=== PATIENT | female | born 1970 | race Caucasian/White ===

== ENCOUNTER 2023-03-13 09:45 | Emergency (ER) | payer SELFPAY ==
[2023-03-13 09:46] VITALS: BP 144/74; PULSE 58; RESP 20; TEMP 36.7; O2SAT 100; BMI 42.4
--- NOTE | 2023-03-13 10:03 | CT_ITS ---
STUDY: CTA CHEST REASON FOR EXAM: Female, 52 years old. Left upper chest pain, dyspnea RADIATION DOSAGE (If Supplied By Facility): CTDIvol = ( 15.03 ) mGy, DLP = ( 471.52 ) mGycm TECHNIQUE: The examination was performed with the intravenous administration of IV 100mL Isovue-370. Post-processing of the angiographic images was performed, with multiplanar reformation and 3D reconstruction. Individualized dose optimization techniques were used for this CT. COMPARISON: None. FINDINGS: Normal enhancement of the main pulmonary artery and right and left pulmonary arteries. Normal enhancement of the bilateral peripheral pulmonary arteries. There is no demonstrated pulmonary embolism. Normal thoracic aorta and visualized great vessels. There is no demonstrated aortic dissection. No coronary artery calcification is seen. Normal mediastinum. Normal hilar regions. Normal visualized trachea and bronchi. The lungs are well expanded. Normal pulmonary parenchyma. Normal pleura. Normal chest wall structures. Normal osseous structures. Normal visualized upper abdomen. CT/CTA Chest W/WO Contrast IMPRESSION: Normal CTA chest examination, without a demonstrated pulmonary embolism or arterial dissection. Electronically Signed: Demetri Velasco MD at 11:26 EDT ,
--- NOTE | 2023-03-13 10:03 | EKG12_ITS ---
Test Reason : CP Blood Pressure : / mmHG Vent. Rate : 057 BPM Atrial Rate : 057 BPM P-R Int : 160 ms QRS Dur : 084 ms QT Int : 440 ms P-R-T Axes : 053 013 050 degrees QTc Int : 428 ms Sinus bradycardia Low voltage QRS Nonspecific T wave abnormality Abnormal ECG Confirmed by RANDY GIPSON, CHETAN ([id number]), copy editor MADELINE HUNT ([id number]) on 03/17/2023 11:42:45 AM Referred By: Martinez Schafer Confirmed By:CHETAN PADILLA MD
--- NOTE | 2023-03-13 10:05 | ED.VIS.CHEST ---
HPI History of Present Illness Chief Complaint: Chest Pain Informant: patient Narrative Narrative: Patient's primary complaint is actually pain over by her left shoulder. She states this woke her up at about 2:30 in the morning. It then spread up over the top of her shoulder toward the base of her neck and down in the left upper chest. If she sits still its not that bad. But if she moves her shoulder it is painful. She has a little discomfort turning her neck left and right. No numbness tingling. She states the pain was bad enough that she felt short of breath but is not short of breath now. She denies nausea or vomiting. She cannot think of anything that she did to cause or aggravate this. She has not had any recent infections. She has had no fevers or chills. Her father had a heart attack somewhere in his 50s but were not sure the exact age. But the patient has no diabetes high blood pressure cholesterol or smoking history. She has never had heart issues. She has had no travel surgery immobilization personal or known history of DVT or PE in her the family. She states her dad had a clot but that was actually a heart attack. He had CPR and then was brought back. She has no leg pain or swelling. [facility] Medical History Anxiety Depression Home Medications buspirone 10 mg tablet 10 mg PO TID 03/13/23 [History Last Taken Unknown] citalopram 40 mg tablet 40 mg PO DAILY 03/13/23 [History Last Taken Unknown] gabapentin 300 mg capsule 300 mg PO BID 03/13/23 [History Last Taken Unknown] tramadol 50 mg tablet 50 mg PO Q6H PRN pain 3 days #12 tabs 03/13/23 [Rx Last Taken Unknown] Allergy/AdvReac Type Severity Reaction Status Date / Time acetaminophen [From Vicodin] Allergy Nausea Verified 03/13/23 09:46 codeine Allergy Nausea Verified 03/13/23 09:46 hydrocodone [From Vicodin] Allergy Nausea Verified 03/13/23 09:46 Surgical History Hx of cholecystectomy Hx of foot surgery Hx of hand surgery Hx of hysterectomy Social History Smoking Status: Never smoker ROS ROS ED Constitutional Constitutional ED: Denies chills, fever(s), subjective or sweats Eyes Eyes: Denies change in vision ENT ENT ED: Reports other Details: She does have some soreness toward the base of the neck on the left but it really radiates from around the shoulder area. ; Denies rhinorrhea or sore throat Cardiovascular Cardiovascular: Reports as per HPI Respiratory/Chest Respiratory/Chest: Denies cough Gastrointestinal Gastrointestinal: Denies diarrhea, nausea or vomiting Genitourinary Genitourinary ED: Denies hematuria Musculoskeletal Musculoskeletal: Reports arthralgias, neck pain and other Details: Soreness seems to center more around motion of the left shoulder. She states sometimes moving the elbow and even the forearm hurts also but the shoulder area is worse. She actually points more to the lateral deltoid as the origin of her pain rather than the actual glenohumeral joint. ; Denies myalgias Integumentary Denies abscess or rash Neurologic Neurologic: Denies headache(s), paresthesias or weakness Hematologic/Lymphatic Hematologic/Lymphatic: Denies easy bleeding or easy bruising Allergic/Immunologic Allergic/Immunologic ED: Denies urticaria EXAM Physical Exam Narrative Exam Narrative: Patient is awake alert looks comfortable in bed. Nontoxic. Carries on normal conversation HEENT shows no trauma. Mucous membranes are moist. Eyes show no icterus Neck there is minimal tenderness in the musculature at the left base. But no meningismus. No pain with axial loading. Lungs are completely clear bilaterally. No pain with a deep breath. Saturations are normal at 100% on room air Heart is slightly bradycardic but she states she has a long history of a slow heart rate and that is normal for her. I do not hear a murmur. She has excellent pulses in all 4 extremities. Abdomen is obese but no tenderness. No rebound guarding or mass. shows no suprapubic or CVA tenderness Extremities show no edema. No erythema. She has tenderness mostly over the deltoid and supraspinatus muscle. There is some pain with active motion but not so much with passive. This seems more muscular and does not appear to be in the joint so much. She states there is a little bit of tenderness when I press down and bicep tricep area also. I see no skin changes. She has a little bit of tenderness in the left upper chest wall where she has pain also. Neurologically she is awake alert and appropriate. Const Vital Signs: 03/13/23 09:46 03/13/23 09:50 03/13/23 10:12 Temperature 98.0 F Temperature Source Oral Pulse Rate 58 L 51 L Respiratory Rate 20 H Respiratory Effort Normal Respiratory Pattern Normal Blood Pressure 144/74 H 156/72 H Blood Pressure Mean 97 100 Pulse Ox 100 Oxygen Delivery Method Room Air MDM MDM MDM Narrative Medical decision making narrative: My independent interpretation the patient's CTA shows no acute process. Final reading is normal CTA chest examination without a demonstrated pulmonary embolism or arterial dissection. Patient CBC is normal including white count. Electrolytes are normal other than minimal elevation in the creatinine at 1.07. She was given some fluids here. Troponin is unmeasurable after approximately 7 and half hours of symptoms. Patient's recheck. Reexamine the area. There is no erythema rash subcutaneous air. There is no indication of infection or necrotizing fasciitis. She has pain really in the musculature more than with joint pain. I do not think this requires joint aspiration. We will get her something for pain. Patient may have strained this or slept wrong. Although she has allergies to codeine and hydrocodone, she is taken tramadol without difficulty so we will write for that. We discussed reasons to return that would include any swelling, redness, fevers, trouble breathing numbness or other concerns. I did access and review the online prescribing report. Lab Data Labs: Laboratory Results - last 24 hr 03/13/23 03/13/23 09:50 09:50 WBC 6.6 RBC 4.45 Hgb 13.5 Hct 41.3 MCV 92.8 MCH 30.3 MCHC 32.7 RDW Std Deviation 43.0 RDW Coeff of Naty 12.7 Plt Count 323 MPV 9.6 Immature Gran % (Auto) 0.300 Neut % (Auto) 62.6 Lymph % (Auto) 29.7 [place] % (Auto) 5.1 Eos % (Auto) 1.7 Baso % (Auto) 0.6 Absolute Neuts (auto) 4.2 Absolute Lymphs (auto) 1.97 Nucleated RBC % 0 Sodium 136 Potassium 3.8 Chloride 103 Carbon Dioxide 29.0 Anion Gap 4 L BUN 14 Creatinine 1.07 H Estim Creat Clear Calc 48.09 Est GFR (MDRD) Af Amer 69 Est GFR (MDRD) Non-Af 57 L BUN/Creatinine Ratio 13.1 Glucose 96 Calcium 9.7 Troponin I High Sens < 3 L Radiography Diagnostic Testing: Clinical Impression(s) from Imaging Studies Chest CTA 03/13/23 10:03 IMPRESSION: Normal CTA chest examination, without a demonstrated pulmonary embolism or arterial dissection. Electronically Signed: Demetri Velasco MD at 11:26 EDT , Discharge Plan Triage Chief Complaint: Chest Pain ED Provider: Martinez Schafer Dx/Rx/DC Orders Clinical Impression: Arm pain, left Instructions: ED Chest Pain, Uncertain Cause Prescriptions: New tramadol 50 mg tablet 50 mg PO Q6H PRN (Reason: pain) 3 Days Qty: 12 0RF No Action citalopram 40 mg tablet 40 mg PO DAILY Label Comments: TAKE 1 TABLET BY MOUTH ONCE DAILY buspirone 10 mg tablet 10 mg PO TID Label Comments: TAKE 1 TABLET BY MOUTH THREE TIMES DAILY gabapentin 300 mg capsule 300 mg PO BID Label Comments: TAKE 1 CAPSULE BY MOUTH TWICE DAILY Primary Care Provider: Juancho Akins Referrals: Juancho Akins MD [Primary Care Provider] - 1-2 Days if not improving Disposition Disposition: Home, Self Care
[2023-03-13 10:11] LABS: Absolute Lymphocyte Count 1.97 X10^3/uL (0.83-4.51); Absolute Neutrophil Count 4.2 X10^3/uL (2.0-7.7); Basophil# 0.04 X10^3/uL; Basophil% 0.6 % (0-1); Eosinophil# 0.11 X10^3/uL; Eosinophils% 1.7 % (0-5); Hematocrit 41.3 % (37-47); Hemoglobin 13.5 g/dL (12.0-15.0); Lymphocyte # 1.97 X10^3/ul (0.83-4.51); Lymphocyte % 29.7 % (19-41); Mean Corp Hgb Conc 32.7 g/dL (32-36); Mean Corpuscular Hgb 30.3 pg (27.0-32.0); Mean Corpuscular Volume 92.8 fL (81-99); Mean Platelet Vol. 9.6 fl (6.2-12.0); Monocyte# 0.34 X10^3/uL; Monocyte% 5.1 % (0-10); NRBC Flagged by Analyzer 0 % (0-5); Neutrophil # 4.16 X10^3/uL (2.7-7.7); Neutrophil % 62.6 % (47-70); Platelet Count 323 K/mm3 (150-450); RBC Distribution Width CV 12.7 % (11.6-14.6); Red Blood Count 4.45 M/mm3 (4.2-5.4); White Blood Count 6.6 K/mm3 (4.4-11.0)
[2023-03-13 10:12] VITALS: BP 156/72; PULSE 51
[2023-03-13 10:30] LABS: Anion Gap 4 (5-15); BUN 14 mg/dL (7-18); BUN/Creat Ratio 13.1 RATIO (10-20); Calcium,Total 9.7 mg/dL (8.5-10.1); Chloride 103 mmol/L (98-107); Creatinine, Serum 1.07 mg/dL (0.55-1.02); EST Glomerular Filtration Rate 57 mL/min (>60); Est Glom Filt Rate - Afr Amer 69 mL/min (>60); Estimated Creatinine Clearance 48.09 ml/min; Glucose 96 mg/dL (74-106); Potassium 3.8 mmol/L (3.5-5.1); Sodium Level 136 mmol/L (136-145); Troponin-I HS < 3 pg/mL (3.0-54.0)
[2023-03-13] MEDS: traMADol 50 MG Tablet PO (12:13)
== END 2023-03-13 12:17 | disposition home or self-care (01) ==
PROVIDERS: Emergency Provider Emergency Medicine; PCP Family Medicine; Referring Provider Emergency Medicine; Visit Provider Emergency Medicine
DX: M79.602 Pain in left arm (principal); F41.9 Anxiety disorder, unspecified; F32.A Depression, unspecified; Z79.899 Other long term (current) drug therapy; Z90.49 Acquired absence of other specified parts of digestive tract; Z90.710 Acquired absence of both cervix and uterus
CPT/HCPCS: 71275; 80048; 84484; 85025; 93005; 99285; J7030; Q9967; A4216